=== PATIENT | female | born 1990 | race African-American/Black ===

== ENCOUNTER 2025-01-23 14:09 | Emergency (ER) | payer OTHER ==
[~2025-01-23] VITALS: Ht 172.7 cm; Wt 90.0 kg
[2025-01-23 14:15] VITALS: BP 174/121; PULSE 108; RESP 18; TEMP 36.7; O2SAT 98
== END 2025-01-23 14:30 ==
LOC: ER 14:09
DX: Z02.89 Encounter for other administrative examinations (principal); J45.909 Unspecified asthma, uncomplicated
CPT/HCPCS: 99283